=== PATIENT | female | born 1980 | race Caucasian/White ===

== ENCOUNTER 2017-08-14 08:52 | Emergency (ER) | payer OTHER ==
[~2017-08-14] VITALS: Ht 165.1 cm; Wt 89.8 kg
[2017-08-14 09:05] VITALS: BP 129/83
[2017-08-14] MEDS ORDERED: HYDROCORTISO453.6 G1 TOP (09:22)
[2017-08-14] MEDS ORDERED: PERMETHRIN60 GM TOP (09:22)
--- NOTE | 2017-08-14 09:23 | ED SKIN/ALLERGY COMPLAINT ---
History of Present Illness General Chief Complaint: Skin Rash/ Abcess Stated Complaint: ? SCABBIES Source: patient Exam Limitations: no limitations Vital Signs & Intake/Output Vital Signs & Intake/Output Vital Signs Date Time Temp Pulse Resp B/P B/P Pulse O2 O2 Flow FiO2 Mean Ox Delivery Rate 08/14 0905 98.6 94 20 129/83 98 Room Air Allergies Coded Allergies: amoxicillin (HIVES 08/14/17) Reconcile Medications Hydrocortisone 1 % CREAM..G. 1 PITO TOP BID itching apply to affected area(s) Permethrin 5 % CREAM..G. 1 PITO TOP ONCE rash massage into skin from head to soles of feet one time, leave on for 8-14 hours then remove by thorough washing Triage Note: PT C/O ITCHING ON ARMS, LEGS BACK OF NECK, TOP OF BUTTOCKS, EARS, BREASTS SINCE SATURDAY. STATES SHE STAYED IN A CHEAP HOTEL RECENTLY AND FEARS SHE MAY HAVE SCABIES Triage Nurses Notes Reviewed? yes : No Patient currently breastfeeds: No HPI: This is an otherwise healthy 37-year-old female who presents today with rash. She reports that for the past days she has had severe pruritus, and is concerned that she has scabies. She reports that she stayed in a "very cheap hotel" recently, but notes that neither of her 2 children nor her have symptoms , and they stayed with her. She sleeps with her in the same bed, and has not seen any sign of bedbugs. She has no history of known skin allergies, scabies, contact dermatitis, or other dermatologic abdomen obvious. She is quite distressed and anxious regarding the possibility of scabies, and is clearly very pruritic. She states that the itching is worse at night. Denies other complaints at this time. Past History Travel History Traveled to [place] past 21 day No Medical History Any Pertinent Medical History? none Neurological: NONE EENT: NONE Cardiovascular: NONE Respiratory: NONE Gastrointestinal: NONE Hepatic: NONE Renal: NONE Musculoskeletal: NONE Psychiatric: NONE Endocrine: NONE Surgical History Surgical History: non-contributory Psychosocial History What is your primary language Turkmen Tobacco Use: Never used ETOH Use: denies use Illicit Drug Use: denies illicit drug use Family History Hx Contributory? No Review of Systems Review of Systems Constitutional: Reports: see HPI. EENTM: Reports: no symptoms. Respiratory: Reports: no symptoms. Cardiovascular: Reports: no symptoms. GI: Reports: no symptoms. Genitourinary: Reports: no symptoms. Musculoskeletal: Reports: no symptoms. Skin: Reports: see HPI, erythema, rash. Denies: change in skin color, change in hair/ nails, dryness. Neurological/Psychological: Reports: no symptoms. Hematologic/Endocrine: Reports: no symptoms. Immunologic/Allergic: Reports: no symptoms. All Other Systems: Reviewed and Negative Physical Exam Physical Exam General Appearance: well developed/nourished, no apparent distress, mild distress Comments: HEENT: Inspection of the head reveals a normocephalic cranium with no signs of trauma. Ophtho: Extraocular muscles are intact. The sclera are noninjected, and there is no obvious discharge. Neck: No signs of trauma or asymmetry to the neck. Respiratory: The patient exhibits no signs of labored breathing. Cardiac: Non-tachycardic. GI: No gross abdominal distention. No abdominal pain, specifically none in the right upper quadrant. : Deferred Neuro: The patient is oriented to person, place, time, and situation, with no obvious focal motor deficits. Cranial nerves II through XII are intact, and gait is normal. Behavioral: Calm and cooperative Dermatologic: Detailed dermatologic examination reveals excoriation and erythema from itching to the bilateral lower legs, bilateral upper extremities, palms of the hands, and small of the lower back. There are no specific exanthems, hives, lesions, vesicles, or other rash patterns in these areas, with the exception of the lower back which has a slightly raised hive like appearance, without vesicles or scabies lesions. There is no evidence of burrowing or other scabies -like pattern. Progress Differential Diagnosis: abscess/cellulitis, allergic reaction, contact dermatitis, drug reaction, erythema multiforme, shingles, urticaria, scabies, bedbugs Plan of Care: Patient presents today with extremely pruritic but nonspecific rash. She was concern for scabies, but I find no evidence of this diagnosis specifically. However, given the nonspecific nature of the rash remains on the differential diagnosis. The patient is concerned enough about this possibility that she has accepted my offer for empiric permethrin treatment. I sent this to her pharmacy with structures for a body wide application today, followed by reassessment at her primary physician who can refill his prescription for the subsequent dosage if the rash remains unresolved. I also prescribed hydrocortisone 2.5% cream for control of her pruritus, and recommended diphenhydramine orally. I did consider urticaria from other causes such as biliary disease, but she had no abdominal pain whatsoever, nor any other complaints. Medical screening examination otherwise negative. Patient will follow-up with her primary physician for reassessment and refills as needed, and for referral to dermatology if her symptoms remain unresolved. Departure Departure Time of Disposition: 917 Disposition: HOME OR SELF CARE Condition: Stable Clinical Impression Primary Impression: Rash and nonspecific skin eruption Referrals: Cynthia MENDES,Cynthia (PCP/Family) Additional Instructions: Please use the permethrin represcribed 2 year pharmacy from your hairline to your toes, and leave it in for 8-12 hours. Then use the hydrocortisone cream prescribed in the areas where your itching is the worst, which will hopefully help with her symptoms. Use Benadryl at night or when your symptoms become severe. Follow-up with your primary doctor for reassessment, for further prescriptions, and possibly for referral to a pie bakery laborer if your symptoms persist. Departure Forms: Customer Survey General Discharge Information Prescriptions: Current Visit Scripts Permethrin 1 PITO TOP ONCE #60 GM massage into skin from head to soles of feet one time, leave on for 8-14 hours then remove by thorough washing Hydrocortisone 1 PITO TOP BID #60 GM apply to affected area(s)
== END 2017-08-14 09:34 ==
LOC: ERH 08:52
DX: R21 Rash and other nonspecific skin eruption (principal)